=== PATIENT | male | born 1965 | race African-American/Black ===

== ENCOUNTER 2018-01-06 15:08 | Emergency (ER) | payer SELFPAY ==
[~2018-01-06] VITALS: Ht 177.8 cm; Wt 95.0 kg
[2018-01-06] MEDS ORDERED: CYCLOBENZAPRINE 10MG TABLET PO ONE (15:45)
[2018-01-06] MEDS ORDERED: IBUPROFEN 800MG TABLET PO ONE (15:45)
[2018-01-06 16:46] VITALS: BP 124/80
== END 2018-01-06 16:47 | disposition home or self-care (01) ==
LOC: ER 15:32
DX: S13.4XXA Sprain of ligaments of cervical spine, initial encounter (principal); M51.37 Other intervertebral disc degeneration, lumbosacral region; F12.10 Cannabis abuse, uncomplicated; V89.2XXA Person injured in unspecified motor-vehicle accident, traffic, initial encounter; Y93.89 Activity, other specified; Y92.89 Other specified places as the place of occurrence of the external cause; Y99.8 Other external cause status
CPT/HCPCS: 72100; 99284